=== PATIENT | male | born 1960 | race Caucasian/White ===

== ENCOUNTER 2016-11-28 17:29 | Emergency (ER) | payer OTHER ==
[~2016-11-28] VITALS: Ht 170.1 cm; Wt 65.8 kg
[~2016-11-28 17:29] MED LIST: ACETAMINOPHEN-O1 TAB PO; CLARITIN10 MG PO; EPIPEN 2-PAK1 MG/ML IJ; KEFLEX500 M1 PO; KEFLEX500 MG PO; MEDROL DOSEPAK4 MG PO; PREDNISONE20 M1 PO; TOBRADEX 0.1%-0.5 ML OPH; VICODIN 5/500 505 M1 PO; VICODIN 5/500 505 MG PO
[2016-11-28] MEDS ORDERED: HYDROCODONE BIT1 T11 PO (19:38)
== END 2016-11-28 19:41 | disposition home or self-care (01) ==
LOC: ED 17:29
DX: S82.832A Other fracture of upper and lower end of left fibula, initial encounter for closed fracture (principal); F17.200 Nicotine dependence, unspecified, uncomplicated; W01.0XXA Fall on same level from slipping, tripping and stumbling without subsequent striking against object, initial encounter; Y93.9 Activity, unspecified; Y92.89 Other specified places as the place of occurrence of the external cause; Y99.9 Unspecified external cause status

== ENCOUNTER → 2017-07-30 | Outpatient (CLI) | payer OTHER ==
[~2017-07-30] MED LIST changes: +HYDROCODONE BIT1 T11 PO
== END | disposition home or self-care (01) ==
LOC: RAD 14:21
DX: J44.9 Chronic obstructive pulmonary disease, unspecified (principal)

== ENCOUNTER 2017-08-12 12:49 | Emergency (ER) | payer OTHER ==
[~2017-08-12] VITALS: Ht 170.1 cm; Wt 64.4 kg
[2017-08-12] MEDS ORDERED: FLONASE ALLERG9.9 ML NAS (14:06)
[2017-08-12] MEDS ORDERED: CLARITIN10 MG PO (14:06)
[2017-08-12] MEDS ORDERED: PREDNISONE10 MG PO (14:06)
== END 2017-08-12 14:38 | disposition home or self-care (01) ==
LOC: ED 12:49
DX: J02.9 Acute pharyngitis, unspecified (principal); R03.0 Elevated blood-pressure reading, without diagnosis of hypertension; F17.200 Nicotine dependence, unspecified, uncomplicated; F10.10 Alcohol abuse, uncomplicated; Z79.899 Other long term (current) drug therapy

== ENCOUNTER → 2017-08-26 | Outpatient (CLI) | payer OTHER ==
[~2017-08-26] MED LIST changes: +FLONASE ALLERG9.9 ML NAS; +PREDNISONE10 MG PO
== END | disposition home or self-care (01) ==
LOC: US 12:58
DX: R59.1 Generalized enlarged lymph nodes (principal)

== ENCOUNTER 2018-03-27 05:35 | Emergency (ER) | payer OTHER ==
[~2018-03-27] VITALS: Ht 175.2 cm; Wt 90.7 kg
[2018-03-27 06:27] LABS: HEMATOCRIT 42.1 % (42.0-52.0); HEMOGLOBIN 14.1 g/dl (14.0-18.0); MEAN CELL VOLUME 100.2 fl (80.0-94.0); MEAN CORPUSCULAR HGB 33.6 pg (27.0-31.0); MEAN CORPUSCULAR HGB CONC 33.5 g/dl (33.0-37.0); MEAN PLATELET VOLUME 8.3 fl (9.6-12.3); PLATELET COUNT AUTOMATED 316 10*3/uL (130-400); RED CELL DISTRI WIDTH 14.7 % (0-14.5); WHITE BLOOD COUNT 9.9 10*3/uL (4.8-10.8)
[2018-03-27 06:39] LABS: BUN 12 mg/dl (7-24); CHLORIDE 100 mmol/L (98-107); CREATININE 0.44 mg/dL (0.70-1.30); SODIUM 138 mmol/L (136-145)
[2018-03-27 06:52] LABS: PLATELET SUFFICIENCY NORMAL (NORMAL); TOTAL CELLS COUNTED 100 #CELLS
[2018-03-27] MEDS ORDERED: LEVAQUIN750 M1 PO (08:05)
[2018-03-27] MEDS ORDERED: POTASSIUM CHLO20 ME3 PO (08:05)
[2018-03-27] MEDS ORDERED: PERCOCET 10-321 EACH PO (08:06)
[2018-03-27] MEDS ORDERED: ZOFRAN ODT4 MG SL (08:07)
== END 2018-03-27 08:40 | disposition home or self-care (01) ==
LOC: ED 05:35
PROVIDERS: Emergency Medicine Emergency Medical Services
DX: T85.598A Other mechanical complication of other gastrointestinal prosthetic devices, implants and grafts, initial encounter (principal)

== ENCOUNTER 2018-04-07 13:22 | Emergency (ER) | payer OTHER ==
[~2018-04-07] VITALS: Ht 172.7 cm; Wt 57.2 kg
[~2018-04-07 13:22] MED LIST changes: +LEVAQUIN750 M1 PO; +PERCOCET 10-321 EACH PO; +POTASSIUM CHLO20 ME3 PO; +ZOFRAN ODT4 MG SL
== END 2018-04-07 14:26 | disposition home or self-care (01) ==
LOC: ED 13:22
DX: M79.604 Pain in right leg (principal); M79.605 Pain in left leg; Z79.2 Long term (current) use of antibiotics; Z79.899 Other long term (current) drug therapy

== ENCOUNTER 2019-07-30 03:20 | Emergency (ER) | payer OTHER ==
[~2019-07-30] VITALS: Wt 48.5 kg
[~2019-07-30 03:20] MED LIST changes: +24 HOUR ALLER15.8 ML INH; +CEFDINIR250 MG/5 M PO; +PEPCID20 MG PEG; +PERCOCET 10-321 EACH PEG; +SEROQUEL25 MG PEG; +THIAMINE HCL100 MG PEG; +VENTOLIN 02.5 MG/3 M INH
[2019-07-30 03:44] LABS: BASO # 0.1 10*3/uL (0.0-0.1); BASO % 0.5 % (0.0-1.0); EOS # 0.1 10*3/uL (0.0-0.4); EOS % 0.9 % (1.0-4.0); HEMOGLOBIN 15.4 g/dl (14.0-18.0); LYMPH # 1.3 10*3/uL (1.3-4.4); LYMPH % 13.2 % (27.0-41.0); MEAN CELL VOLUME 103.1 fl (80.0-94.0); MEAN CORPUSCULAR HGB 34.5 pg (27.0-31.0); MEAN CORPUSCULAR HGB CONC 33.5 g/dl (33.0-37.0); MEAN PLATELET VOLUME 8.5 fl (9.6-12.3); MONO # 0.6 10*3/uL (0.1-1.0); MONO % 6.3 % (3.0-9.0); NEUT # 7.7 10*3/uL (2.3-7.9); NEUT % 78.6 % (47.0-73.0); PLATELET COUNT AUTOMATED 379 10*3/uL (130-400); RED BLOOD COUNT 4.46 10*6/uL (4.50-5.90); WHITE BLOOD COUNT 9.8 10*3/uL (4.8-10.8)
[2019-07-30 03:55] LABS: ACT PARTIAL THROMBO TIME 27.9 SECONDS (20.0-32.1); INTERNATIONAL NORM RATIO 0.9 (2.0-3.5)
[2019-07-30 03:59] LABS: ALBUMIN 3.4 gm/dl (3.1-4.5); ALKALINE PHOSPHATASE 118 U/L (45-117); BUN 5 mg/dl (7-24); CHLORIDE 102 mmol/L (98-107); CREATININE 0.44 mg/dL (0.70-1.30); POTASSIUM 3.5 mmol/L (3.5-5.1); SGOT/AST 18 IU/L (3-35); SGPT/ALT 23 U/L (12-78); SODIUM 140 mmol/L (136-145); TOTAL PROTEIN 6.9 gm/dL (6.4-8.2)
== END 2019-07-30 05:50 | disposition short-term general hospital (02) ==
LOC: ED 03:20
PROVIDERS: Emergency Medicine
DX: C32.9 Malignant neoplasm of larynx, unspecified (principal); R06.1 Stridor; J98.8 Other specified respiratory disorders; J38.4 Edema of larynx; Z91.030 Bee allergy status; Z79.899 Other long term (current) drug therapy